=== PATIENT | male | born 1950 | race Caucasian/White ===

== ENCOUNTER 2016-05-02 10:48 | Outpatient (RCR) | payer MEDICARE ==
--- OUTSIDE RECORDS SUMMARY | 2016-04-27 08:53 | XMS REPORT | Continuity of Care Document ---
Author Author [facility] Organization [facility] Address Unknown Phone Unavailable Care Team Providers Care Directional Driller Name Role Phone Unknown, Unknown PCP Unavailable Source Comments Some departments are not documenting in the electronic medical record. If you do not see the information that you expected, contact Release of Information in the Health Information Management department at [phone] for further assistance in locating additional records.[facility] Active Allergies and Adverse Reactions No Known Allergies Current Medications Prescription Sig. Disp. Refills Start End Date Status Date aspirin EC 81 mg tablet Take 81 mg by mouth Active daily. atorvastatin (LIPITOR) 80 Take 80 mg by mouth Active mg tablet daily. clopiDOGrel (PLAVIX) 75 Take 75 mg by mouth Active mg tablet daily. FLAXSEED OIL (OMEGA 3 PO) Take by mouth. Active pantoprazole DR Take 40 mg by mouth Active (PROTONIX) 40 mg tablet daily. Active Problems Problem Noted Date Renal mass, right 12/14/2014 Overview: 5.8 cm R renal mass concerning for RCC. L ast Assessment & Plan: Plan: 1. Management options discussed with patient at length which include active surveillance, surgery, RFA, cyrotherapy. Dr. Perez discussed that standard of care for 5.8 cm renal masses is surgical removal as , RFA, cyrotherapy are reserved for small lesions < 3 cm. However, the patient is high risk for surgery given his recent [place] and drug eluding stents (on ASA/Plavix). Per guidelines, patients cannot stop Plavix safely until 6 months after placement of drug eluding stents. 2. Will have patient RTC in [address] C/A/P prior to appointment for re-staging. Will plan for R radical nephrectomy at that time as he will be 6 months from stent placement 3. Needs Cardiac clearance from Drs. Cisneros and Alen Fishman prior to appointment. Social History Tobacco Use Types Packs/Day Years Used Date Former Smoker Cigarettes, Cigars 1.5 45 Smokeless Tobacco: Never Used Alcohol Use Drinks/Week oz/Week Comments No Last Filed Vital Signs Vital Sign Reading Time Taken Blood Pressure 128/67 12/14/2014 10:35 AM CDT Pulse 52 12/14/2014 10:35 AM CDT Temperature - - Respiratory Rate - - Height 1.626 m (5' 4") 12/14/2014 10:35 AM CDT Weight 57.335 kg (126 lb 6.4 oz) 12/14/2014 10:35 AM CDT Body Mass Index 21.69 12/14/2014 10:35 AM CDT Oxygen Saturation - - Plan of Care Health Maintenance Due Date Last Done Comments Physical (Comprehensive) 02/27/1957 Exam Pertussis Vaccine 02/27/1960 Tetanus Vaccine 1966 Colorectal Cancer 1999 Screening Shingles Vaccine 2009 Prevnar/Pneumovax (#1) 2014 Influenza Vaccine 02/24/2016 Results from Last 3 Months Not on file
[2016-04-27 09:03] LABS: BASOPHILS % (AUTO) 0 % (0-10); EOSINOPHILS # (AUTO) 0.2 10^3/uL (0.0-0.3); EOSINOPHILS % (AUTO) 3 % (0-10); LYMPHOCYTES # (AUTO) 1.6 X 10^3 (1.0-4.0); LYMPHOCYTES % (AUTO) 22 % (12-44); MEAN CORPUSCULAR HEMOGLOBIN 32 PG (25-34); MEAN CORPUSCULAR HGB CONC 34 G/DL (32-36); MEAN CORPUSCULAR VOLUME 94 FL (80-99); MEAN PLATELET VOLUME 8.9 FL (7.4-10.4); MONOCYTES # (AUTO) 0.6 X 10^3 (0.0-1.0); MONOCYTES % (AUTO) 8 % (0-12); NEUTROPHILS # (AUTO) 5.1 X 10^3 (1.8-7.8); NEUTROPHILS % (AUTO) 67 % (42-75); PLATELET COUNT 210 10^3/uL (130-400); RED BLOOD COUNT 4.16 10^6/uL (4.35-5.85); RED CELL DISTRIBUTION WIDTH 13.6 % (10.0-14.5); WHITE BLOOD COUNT 7.5 10^3/uL (4.3-11.0)
[2016-04-27 09:29] LABS: ALANINE AMINOTRANSFERASE 38 U/L (0-55); ALBUMIN 4.3 G/DL (3.2-4.5); ANION GAP 9 MMOL/L (5-14); ASPARTATE AMINO TRANSFERASE 27 U/L (5-34); BILIRUBIN,TOTAL 0.8 MG/DL (0.1-1.0); BLOOD UREA NITROGEN 15 MG/DL (7-18); BUN/CREATININE RATIO 18; CALCIUM 9.6 MG/DL (8.5-10.1); CARBON DIOXIDE 25 MMOL/L (21-32); CHLORIDE 105 MMOL/L (98-107); CREATININE SERUM 0.85 MG/DL (0.60-1.30); GFR ESTIMATED > 60; GLUCOSE 108 MG/DL (70-105); POTASSIUM 4.3 MMOL/L (3.6-5.0); SODIUM 139 MMOL/L (135-145); TOTAL PROTEIN 6.5 G/DL (6.4-8.2)
[2016-04-27 12:44] LABS: %SAT TOTAL IRON BINDING CAPIC 56 % (15-50); TIBC 249 ug/dL (280-380)
[2016-04-27 14:13] LABS: UIBC 109 ug/dL (55-450)
[2016-04-28 07:17] LABS: FERRITIN 1313 ng/mL (25-300)
[~2016-05-02 10:48] MED LIST: ASPI-266 PO; ATOR80TA75 PO; Aspirin PO; Atorvastatin Calcium PO; CLOP75TA PO; CLPD75T PO; IBUP200T48 PO; METO25TA2 PO; METO25TA6 PO; OMEG10005 PO; OMEG1200 PO; OXYC-197 PO; Omega 3 Polyunsat Fatty Acids PO; PNT40TEC PO; VANC1PLA3 IV
== END 2016-07-26 | disposition home or self-care (01) ==
LOC: ONC 10:48
PROVIDERS: ATTEND Internal Medicine Hematology & Oncology
DX: D64.9 Anemia, unspecified (principal); N28.9 Disorder of kidney and ureter, unspecified; I25.10 Atherosclerotic heart disease of native coronary artery without angina pectoris; I25.2 Old myocardial infarction; I10 Essential (primary) hypertension; I65.29 Occlusion and stenosis of unspecified carotid artery; I73.9 Peripheral vascular disease, unspecified; Z87.891 Personal history of nicotine dependence
CPT/HCPCS: 36415; 80053; 82728; 83540; 85025; 99213

== ENCOUNTER → 2016-11-29 | Outpatient (CLI) | payer MEDICARE ==
[~2016-11-29] MED LIST changes: +BARIUM SUSPENSION 2.1% (VANILLA SILQ) 450 ML PO ONE; +CATHETER FLUSH 10 ML SYR IV PRN; +IOHEXOL 350 MG/ML 100 ML (OMNIPAQUE 350) VIAL IV ONE; +NS 100 ML (IVPB) BAG IV ONE
--- NOTE | 2016-11-29 13:21 | Diagnostic Imaging Report ---
PROCEDURE: CT abdomen with contrast only. TECHNIQUE: Multiple contiguous axial images were obtained through the abdomen after the administration of intravenous contrast. INDICATION: Renal mass. 100 mL of Omnipaque 350 is administered intravenously. FINDINGS: There is a 4.1 x 3.4 cm solid and cystic renal mass involving the posterior aspect of the upper pole of the right kidney. It is stable from 04/27/2016 exam. The left kidney appears normal. No hydronephrosis in either kidney. There is a 2.9 cm infrarenal abdominal aortic aneurysm. There is intramural thrombus. This is stable from prior exams. No para-aortic significantly enlarged lymph node is seen. The adrenal glands appear unremarkable. The spleen is not enlarged. The pancreas appear unremarkable. The gallbladder and the liver appear normal. The lung bases demonstrate minimal atelectasis. The osseous structures appear grossly unremarkable. IMPRESSION: 1. Stable mixed solid and cystic 4.1 cm mass with imaging features suggestive of renal cell carcinoma. This mass however has been stable for two years, from 10/26/2014. No regional lymphadenopathy or evidence of metastasis within the abdomen. 2. Stable 2.9 cm infrarenal AAA. Dictated by: Dictated on workstation # [id number]
== END ==
LOC: RAD 10:49
PROVIDERS: ATTEND Internal Medicine Hematology & Oncology
DX: N28.89 Other specified disorders of kidney and ureter (principal); I72.2 Aneurysm of renal artery
CPT/HCPCS: 74160

== ENCOUNTER 2016-12-01 09:51 | Outpatient (RCR) | payer MEDICARE ==
[2016-11-08 14:37] LABS: BASOPHILS % (AUTO) 0 % (0-10); EOSINOPHILS # (AUTO) 0.1 10^3/uL (0.0-0.3); EOSINOPHILS % (AUTO) 1 % (0-10); LYMPHOCYTES # (AUTO) 1.6 X 10^3 (1.0-4.0); LYMPHOCYTES % (AUTO) 14 % (12-44); MEAN CORPUSCULAR HEMOGLOBIN 32 PG (25-34); MEAN CORPUSCULAR HGB CONC 34 G/DL (32-36); MEAN CORPUSCULAR VOLUME 96 FL (80-99); MONOCYTES # (AUTO) 0.9 X 10^3 (0.0-1.0); MONOCYTES % (AUTO) 8 % (0-12); NEUTROPHILS # (AUTO) 8.4 X 10^3 (1.8-7.8); NEUTROPHILS % (AUTO) 76 % (42-75); PLATELET COUNT 192 10^3/uL (130-400); RED BLOOD COUNT 4.24 10^6/uL (4.35-5.85); RED CELL DISTRIBUTION WIDTH 13.2 % (10.0-14.5)
[2016-11-08 14:41] LABS: BILIRUBIN,URINE NEGATIVE (NEGATIVE); KETONES,URINE NEGATIVE (NEGATIVE); LEUKOCYTE ESTERASE ,URINE NEGATIVE (NEGATIVE); NITRITE,URINE NEGATIVE (NEGATIVE); PH,URINE 6 (5-9); PROTEIN,URINE NEGATIVE (NEGATIVE); UROBILINOGEN,URINE NORMAL (NORMAL)
[2016-11-08 14:48] LABS: SQUAMOUS EPITHELIAL CELL,UR RARE /HPF
[2016-11-08 15:08] LABS: ALANINE AMINOTRANSFERASE 26 U/L (0-55); ANION GAP 7 MMOL/L (5-14); ASPARTATE AMINO TRANSFERASE 21 U/L (5-34); BILIRUBIN,TOTAL 1.3 MG/DL (0.1-1.0); BLOOD UREA NITROGEN 14 MG/DL (7-18); BUN/CREATININE RATIO 17; CALCIUM 9.4 MG/DL (8.5-10.1); CARBON DIOXIDE 26 MMOL/L (21-32); CHLORIDE 104 MMOL/L (98-107); CREATININE SERUM 0.81 MG/DL (0.60-1.30); GFR ESTIMATED > 60; GLUCOSE 121 MG/DL (70-105); POTASSIUM 3.7 MMOL/L (3.6-5.0); SODIUM 137 MMOL/L (135-145); TOTAL PROTEIN 6.3 G/DL (6.4-8.2)
[2016-11-08 17:13] LABS: ALBUMIN 4.1 G/DL (3.2-4.5)
[2016-11-09 08:13] LABS: %SAT TOTAL IRON BINDING CAPIC 22 % (15-50); FERRITIN 1090.0 H NG/ML (25.0-300.0); TIBC 235 L UG/DL (280-380)
[2016-11-09 08:15] LABS: UIBC 183 UG/DL
[~2016-12-01 09:51] MED LIST changes: -BARIUM SUSPENSION 2.1% (VANILLA SILQ) 450 ML PO ONE; -CATHETER FLUSH 10 ML SYR IV PRN; -IOHEXOL 350 MG/ML 100 ML (OMNIPAQUE 350) VIAL IV ONE; -NS 100 ML (IVPB) BAG IV ONE; -VANC1PLA3 IV; +VANC1PLA6 IV
[2016-12-01 10:27] LABS: BASOPHILS % (AUTO) 0 % (0-10); EOSINOPHILS # (AUTO) 0.2 10^3/uL (0.0-0.3); EOSINOPHILS % (AUTO) 2 % (0-10); LYMPHOCYTES # (AUTO) 1.4 X 10^3 (1.0-4.0); LYMPHOCYTES % (AUTO) 15 % (12-44); MEAN CORPUSCULAR HEMOGLOBIN 33 PG (25-34); MEAN CORPUSCULAR HGB CONC 35 G/DL (32-36); MEAN CORPUSCULAR VOLUME 95 FL (80-99); MEAN PLATELET VOLUME 9.6 FL (7.4-10.4); MONOCYTES # (AUTO) 0.6 X 10^3 (0.0-1.0); MONOCYTES % (AUTO) 7 % (0-12); NEUTROPHILS # (AUTO) 7.2 X 10^3 (1.8-7.8); NEUTROPHILS % (AUTO) 77 % (42-75); PLATELET COUNT 253 10^3/uL (130-400); RED BLOOD COUNT 4.36 10^6/uL (4.35-5.85); RED CELL DISTRIBUTION WIDTH 12.8 % (10.0-14.5); WHITE BLOOD COUNT 9.4 10^3/uL (4.3-11.0)
[2016-12-01 10:54] LABS: ALANINE AMINOTRANSFERASE 28 U/L (0-55); ALBUMIN 4.2 G/DL (3.2-4.5); ANION GAP 10 MMOL/L (5-14); ASPARTATE AMINO TRANSFERASE 24 U/L (5-34); BILIRUBIN,TOTAL 0.9 MG/DL (0.1-1.0); BLOOD UREA NITROGEN 16 MG/DL (7-18); BUN/CREATININE RATIO 18; CALCIUM 10.3 MG/DL (8.5-10.1); CARBON DIOXIDE 26 MMOL/L (21-32); CHLORIDE 103 MMOL/L (98-107); CREATININE SERUM 0.89 MG/DL (0.60-1.30); GFR ESTIMATED > 60; GLUCOSE 96 MG/DL (70-105); POTASSIUM 4.3 MMOL/L (3.6-5.0); SODIUM 139 MMOL/L (135-145)
== END 2017-02-06 | disposition home or self-care (01) ==
LOC: ONC 09:51
PROVIDERS: ATTEND Internal Medicine Hematology & Oncology
DX: D64.9 Anemia, unspecified (principal); N28.9 Disorder of kidney and ureter, unspecified; I25.10 Atherosclerotic heart disease of native coronary artery without angina pectoris; I25.2 Old myocardial infarction; I10 Essential (primary) hypertension; I65.29 Occlusion and stenosis of unspecified carotid artery; I73.9 Peripheral vascular disease, unspecified; Z87.891 Personal history of nicotine dependence
CPT/HCPCS: 36415; 80053; 81000; 82728; 83540; 85025; 99213

== ENCOUNTER → 2017-06-04 | Outpatient (CLI) | payer MEDICARE ==
[~2017-06-04] MED LIST changes: +IOHEXOL 350 MG/ML 100 ML (OMNIPAQUE 350) VIAL IV ONE; +NS 100 ML (IVPB) BAG IV ONE
--- NOTE | 2017-06-04 09:36 | Diagnostic Imaging Report ---
PROCEDURE: CT abdomen and pelvis with and without contrast. TECHNIQUE: Precontrast acquisitions were acquired through the abdomen and pelvis. Multiple contiguous axial images were obtained through the abdomen and pelvis after the administration of intravenous contrast. INDICATION: Renal mass. 100 mL of Omnipaque 350 is administered intravenously. COMPARISON: 11/29/2016. FINDINGS: The lung bases appear clear. The liver, the gallbladder, the spleen, the adrenal glands and the pancreas appear grossly unremarkable. The pancreatic duct is minimally prominent without a definite obstructive lesion seen. This is similar to prior exams. The right kidney demonstrates a posteriorly exophytic complex mass with cystic and solid components. This is measuring 3.7 x 3.4 x 4.7 cm in size. This is not significantly changed from the previous exam. Part of the solid component extends into the renal sinus centrally. The right renal vein is patent. The unenhanced phase demonstrates evidence of a tiny calcification along the anterior aspect of the mass without stones. Calcification in the renal sinus on the left side is probably vascular. There is an abdominal aortic aneurysm measuring 3.1 cm in size similar to the prior study. It has partially thrombosed lumen. There is moderate to severe stenosis involving the right common iliac artery which is mildly ectatic. No fluid collection in the abdomen is seen. Tiny fat-containing umbilical hernia seen. The osseous structures demonstrate mild degenerative changes. IMPRESSION: 1. Stable complex mass in the right kidney with cystic and solid components measuring up to 4.7 cm craniocaudally is suggestive of renal cell carcinoma. The lack of change in size is perhaps related to low-grade neoplasm. 2. A 3.1 cm infrarenal AAA, minimally larger compared to the previous study. 3. 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 Dictated by: Dictated on workstation # [id number]
== END ==
LOC: RAD 07:22
PROVIDERS: ATTEND Internal Medicine Hematology & Oncology
DX: N28.89 Other specified disorders of kidney and ureter (principal); I71.4 Abdominal aortic aneurysm, without rupture; I74.5 Embolism and thrombosis of iliac artery
CPT/HCPCS: 74178

== ENCOUNTER 2017-06-07 08:35 | Outpatient (RCR) | payer MEDICARE ==
[2017-05-31 10:54] LABS: BASOPHILS % (AUTO) 0 % (0-10); EOSINOPHILS # (AUTO) 0.1 10^3/uL (0.0-0.3); EOSINOPHILS % (AUTO) 2 % (0-10); HEMATOCRIT 41 % (40-54); HEMOGLOBIN 14.2 G/DL (13.3-17.7); LYMPHOCYTES # (AUTO) 2.2 X 10^3 (1.0-4.0); LYMPHOCYTES % (AUTO) 26 % (12-44); MEAN CORPUSCULAR HEMOGLOBIN 32 PG (25-34); MEAN CORPUSCULAR HGB CONC 34 G/DL (32-36); MEAN CORPUSCULAR VOLUME 95 FL (80-99); MEAN PLATELET VOLUME 9.8 FL (7.4-10.4); MONOCYTES # (AUTO) 0.7 X 10^3 (0.0-1.0); MONOCYTES % (AUTO) 8 % (0-12); NEUTROPHILS # (AUTO) 5.4 X 10^3 (1.8-7.8); NEUTROPHILS % (AUTO) 64 % (42-75); PLATELET COUNT 221 10^3/uL (130-400); RED BLOOD COUNT 4.38 10^6/uL (4.35-5.85); RED CELL DISTRIBUTION WIDTH 12.8 % (10.0-14.5); WHITE BLOOD COUNT 8.4 10^3/uL (4.3-11.0)
[2017-05-31 11:16] LABS: ALANINE AMINOTRANSFERASE 27 U/L (0-55); ALBUMIN 4.3 GM/DL (3.2-4.5); ALKALINE PHOSPHATASE 81 U/L (40-136); BUN/CREATININE RATIO 22; CALCIUM 10.2 MG/DL (8.5-10.1); CARBON DIOXIDE 29 MMOL/L (21-32); CHLORIDE 103 MMOL/L (98-107); CREATININE SERUM 0.83 MG/DL (0.60-1.30); GFR ESTIMATED > 60; GLUCOSE 115 MG/DL (70-105); POTASSIUM 4.7 MMOL/L (3.6-5.0); SODIUM 139 MMOL/L (135-145); TOTAL PROTEIN 6.9 GM/DL (6.4-8.2)
[~2017-06-07 08:35] MED LIST changes: -IOHEXOL 350 MG/ML 100 ML (OMNIPAQUE 350) VIAL IV ONE; -NS 100 ML (IVPB) BAG IV ONE; +VANC1PLA12 IV; -VANC1PLA6 IV
== END 2017-08-29 | disposition home or self-care (01) ==
LOC: ONC 08:35
PROVIDERS: ATTEND Internal Medicine Hematology & Oncology
DX: D64.9 Anemia, unspecified (principal); N28.9 Disorder of kidney and ureter, unspecified; I25.10 Atherosclerotic heart disease of native coronary artery without angina pectoris; I10 Essential (primary) hypertension; I73.9 Peripheral vascular disease, unspecified; I25.2 Old myocardial infarction; Z87.891 Personal history of nicotine dependence
CPT/HCPCS: 36415; 80053; 82728; 83540; 85025; 99213

== ENCOUNTER → 2017-09-07 | Outpatient (CLI) | payer MEDICARE | LOC: CARD 10:16 | PROVIDERS: ATTEND Physician Assistant | DX: I71.4 Abdominal aortic aneurysm, without rupture (principal); I65.29 Occlusion and stenosis of unspecified carotid artery; I10 Essential (primary) hypertension; E78.5 Hyperlipidemia, unspecified; I08.0 Rheumatic disorders of both mitral and aortic valves | CPT/HCPCS: 93306 ==

== ENCOUNTER 2018-02-06 14:47 | Outpatient (CLI) | payer MEDICARE ==
[~2018-02-06] VITALS: Ht 162.6 cm; Wt 67.6 kg
[~2018-02-06 14:47] MED LIST changes: +ASPI-999 PO; +ATOR80TA76 PO; +CLOP75TA69 PO; +MELA10CA2 PO; +METO-333 PO; +MULT-35 PO; +OMEG-126 PO; +PANT40TA3 PO; +TRAM50TA2 PO
== END 2018-02-06 14:57 | disposition home or self-care (01) ==
LOC: PREOP 14:47
PROVIDERS: ATTEND Internal Medicine
DX: Z01.818 Encounter for other preprocedural examination (principal)

== ENCOUNTER → 2018-04-29 | Outpatient (CLI) | payer MEDICARE ==
[~2018-04-29] MED LIST changes: +CATHETER FLUSH 10 ML SYR IV PRN; -OXYC-197 PO; +OXYC1TAB87 PO; +REGADENOSON 0.4 MG/5 ML SYR (LEXISCAN) IV ONE
[2018-04-29 09:48] VITALS: BP 153/69
[2018-04-29 09:55] VITALS: BP 160/78
--- NOTE | 2018-04-29 13:13 | STRESS TEST ---
DATE OF SERVICE: 04/29/2018 LEXISCAN MYOVIEW STRESS TEST REPORT Baseline heart rate is 59, baseline blood pressure 153/69. Baseline EKG is sinus rhythm with no ischemic changes. In summary, the patient was injected with 9.02 mCi of technetium-99 Myoview and the resting images were obtained. Then, the patient received 0.4 mg of Lexiscan followed by 27.7 mCi of technetium-99 Myoview. Throughout the test, there were no EKG changes. The resting and stress images were reviewed and compared in the short axis, horizontal long axis, and vertical long axis views. Review of the images showed extracardiac attenuation affecting the quality of the images. There is mild decreased uptake at the mid to apical inferior wall with subtle reversibility. SSS is 5, SDS 2, probably due to the extracardiac attenuation. TID value is 1.02. On the gated images, the left ventricle appeared to be normal size with normal contractility. Calculated ejection fraction is 64%. CONCLUSION: 1. The patient tolerated Lexiscan well. 2. Extracardiac attenuation affecting the quality of the images, typical male pattern with no significant ischemia or infarction on SPECT images. 3. Normal left ventricular size with normal contractility. Calculated ejection fraction is 64%. Job ID: [id number] DocumentID: [id number] Dictated Date: 04/29/2018 11:37:41 Field Talent Qualification Specialist Date: 04/29/2018 13:12:39 Dictated By: EMIGDIO BARAJAS MD
== END ==
LOC: CARD 07:53
PROVIDERS: ATTEND Physician Assistant
DX: I71.4 Abdominal aortic aneurysm, without rupture (principal); I25.10 Atherosclerotic heart disease of native coronary artery without angina pectoris; I10 Essential (primary) hypertension; E78.5 Hyperlipidemia, unspecified; I73.9 Peripheral vascular disease, unspecified
CPT/HCPCS: 78452; 93017

== ENCOUNTER → 2019-06-19 | Outpatient (CLI) | payer MEDICARE ==
[~2019-06-19] MED LIST changes: -CATHETER FLUSH 10 ML SYR IV PRN; -REGADENOSON 0.4 MG/5 ML SYR (LEXISCAN) IV ONE
== END ==
LOC: CARD 13:07
PROVIDERS: ATTEND Physician Assistant
DX: I35.8 Other nonrheumatic aortic valve disorders (principal); I65.29 Occlusion and stenosis of unspecified carotid artery; I25.10 Atherosclerotic heart disease of native coronary artery without angina pectoris; I10 Essential (primary) hypertension; E78.5 Hyperlipidemia, unspecified; I70.8 Atherosclerosis of other arteries
CPT/HCPCS: 93306

== ENCOUNTER → 2020-02-16 | Outpatient (CLI) | payer MEDICARE ==
[~2020-02-16] VITALS: Ht 162 cm; Wt 68.0 kg
[~2020-02-16] MED LIST changes: +CATHETER FLUSH 10 ML SYR IV PRN; +REGADENOSON 0.4 MG/5 ML SYR (LEXISCAN) IV ONE; -TRAM50TA2 PO; +TRM50T PO; -VANC1PLA12 IV; +VANC1PLA18 IV
[2020-02-16 12:18] VITALS: BP 170/75
--- NOTE | 2020-02-16 12:18 | Cardiology Stress Test Report ---
Stress Test Report Date of Procedure/Referring: Date of Procedure: Feb 16, 2020 PCP [facility] Admitting Physician Eduard Barrios MD Indications: Abdominal aortic aneurysm Baseline Heart Rate: 58 Baseline Blood Pressure: Blood Pressure Systolic: 170 Blood Pressure Diastolic: 75 Baseline EKG: Baseline EKG: normal sinus rhythm Summary After explaining the procedure to the patient, he signed a consent and then brought to the stress nuclear laboratory. Patient received 0.4 mg Lexiscan for stress test, ECG, heart rate and blood pressure were monitored continuously. Resting and stress dose of radio tracer were injected, imaging was acquired and reviewed in short axis, horizontal long axis and vertical long axis views. TID: 1.09 SSS: 4 SDS: 2 EF: 64 1. Patient tolerated Lexiscan well 2. Diaphragmatic attenuation with mild decreased uptake involving the inferoapical segment with mild reversibility, no significant ischemia or infarction on SPECT images 3. Normal left ventricular size, EF 64 percent 4. Baseline hypertension persisted during test EMIGDIO BARAJAS MD Feb 16, 2020 12:18
== END ==
LOC: CARD 07:29
PROVIDERS: ATTEND Physician Assistant
DX: I71.4 Abdominal aortic aneurysm, without rupture (principal); I25.10 Atherosclerotic heart disease of native coronary artery without angina pectoris; E78.5 Hyperlipidemia, unspecified; I73.9 Peripheral vascular disease, unspecified; I70.8 Atherosclerosis of other arteries; I35.8 Other nonrheumatic aortic valve disorders
CPT/HCPCS: 78452; 93017; A9502

== ENCOUNTER → 2020-06-11 | Outpatient (CLI) | payer MEDICARE ==
[~2020-06-11] MED LIST changes: -CATHETER FLUSH 10 ML SYR IV PRN; -PANT40TA3 PO; +PANT40TA52 PO; -REGADENOSON 0.4 MG/5 ML SYR (LEXISCAN) IV ONE
[2020-06-11 15:25] LABS: ALBUMIN 4.3 GM/DL (3.2-4.5); BILIRUBIN,TOTAL 1.2 MG/DL (0.1-1.0); CALCIUM 9.7 MG/DL (8.5-10.1); CREATININE SERUM 1.5 MG/DL (0.60-1.30); TOTAL PROTEIN 6.8 GM/DL (6.4-8.2)
== END ==
LOC: LAB 14:38
PROVIDERS: ATTEND Physician Assistant
DX: I25.10 Atherosclerotic heart disease of native coronary artery without angina pectoris (principal); E78.2 Mixed hyperlipidemia
CPT/HCPCS: 36415; 80053; 80061

== ENCOUNTER → 2021-03-14 | Outpatient (CLI) | payer MEDICARE ==
[2021-03-14 09:05] LABS: ALBUMIN 4.3 GM/DL (3.2-4.5); POTASSIUM 3.9 MMOL/L (3.6-5.0)
[2021-03-14 09:06] LABS: CALCIUM 9.8 MG/DL (8.5-10.1)
[2021-03-14 09:08] LABS: TOTAL PROTEIN 6.9 GM/DL (6.4-8.2)
[2021-03-14 09:11] LABS: CREATININE SERUM 1.56 MG/DL (0.60-1.30)
== END ==
LOC: CARD 09:00
PROVIDERS: ATTEND Physician Assistant
DX: I08.0 Rheumatic disorders of both mitral and aortic valves (principal); I25.10 Atherosclerotic heart disease of native coronary artery without angina pectoris; I11.9 Hypertensive heart disease without heart failure; E78.2 Mixed hyperlipidemia
CPT/HCPCS: 36415; 80053; 80061; 93306

== ENCOUNTER → 2022-03-20 | Outpatient (CLI) | payer MEDICARE | LOC: CARD 07:51 | PROVIDERS: ATTEND Internal Medicine Cardiovascular Disease | DX: I08.0 Rheumatic disorders of both mitral and aortic valves (principal); I10 Essential (primary) hypertension; I25.10 Atherosclerotic heart disease of native coronary artery without angina pectoris | CPT/HCPCS: 93306 ==

== ENCOUNTER → 2022-10-03 | Outpatient (CLI) | payer MEDICARE ==
[~2022-10-03] MED LIST changes: +CLOP-31 PO; -CLOP75TA69 PO
== END ==
LOC: CARD 10:18
PROVIDERS: ATTEND Internal Medicine Cardiovascular Disease
DX: I08.0 Rheumatic disorders of both mitral and aortic valves (principal); I25.10 Atherosclerotic heart disease of native coronary artery without angina pectoris; I11.9 Hypertensive heart disease without heart failure
CPT/HCPCS: 93306